=== PATIENT | male | born 1980 | race Hispanic/Latino ===

== ENCOUNTER 2022-10-15 05:09 | Emergency (ER) | payer OTHER ==
[~2022-10-15] VITALS: Ht 170.2 cm; Wt 86.2 kg
[2022-10-15 05:47] LABS: BASOPHILS % (AUTO) 0.8 % (0.0-5.0); EOSINOPHILS % (AUTO) 3.1 % (0.0-8.0); HEMATOCRIT 36.7 % (42-54); LYMPHOCYTES % (AUTO) 20.2 % (21.0-51.0); MEAN CORPUSCULAR HEMOGLOBIN 27.6 pg (27.0-33.0); MEAN CORPUSCULAR HGB CONC 32.7 g/dL (32.0-36.0); MEAN CORPUSCULAR VOLUME 84.6 fL (79-99); MONOCYTES % (AUTO) 9.3 % (3.0-13.0); NEUTROPHILS % (AUTO) 66.1 % (40.0-77.0); PLATELET COUNT (AUTO) 77 K/uL (130-400); RED BLOOD CELL COUNT(AUTO) 4.34 MIL/uL (4.50-6.20); RED CELL DISTRIBUTION WIDTH 21.2 % (11.0-15.5); WHITE BLOOD COUNT (AUTO) 3.9 K/uL (4.8-10.8)
[2022-10-15 05:54] LABS: INR 1.57 (0.85-1.15); PROTHROMBIN TIME 17.7 SEC (9.6-11.6)
[2022-10-15 05:55] LABS: PARTIAL THROMBOPLASTIN TIME 32.6 SEC (26.3-35.5)
[2022-10-15 06:03] LABS: ALBUMIN 2.2 g/dL (3.5-5.0); CREATININE 0.8 mg/dL (0.5-1.5); TOTAL PROTEIN, SERUM 7.1 g/dL (6.0-8.3)
[2022-10-15 06:14] LABS: POTASSIUM 2.9 mmol/L (3.5-5.1)
[2022-10-15 06:22] LABS: AMPHET/METH SCREEN,URINE NEGATIVE (NEGATIVE); BARBITURATE SCREEN, URINE NEGATIVE (NEGATIVE); BENZODIAZEPINES SCREEN,URINE NEGATIVE (NEGATIVE); CANNABINOID SCREEN,URINE NEGATIVE (NEGATIVE); COCAINE SCREEN,URINE NEGATIVE (NEGATIVE); OPIATE SCREEN,URINE NEGATIVE (NEGATIVE); PHENCYCLIDINE SCREEN,URINE NEGATIVE (NEGATIVE)
[2022-10-15] MEDS ORDERED: POTASSIUM BICARB/CIT AC 25 MEQ TABLET.EFF PO ONE ×2 (06:30→12:00)
[2022-10-15] MEDS ORDERED: METOCLOPRAMIDE 10 MG/2 ML VIAL IVP ONE (08:00)
[2022-10-15] MEDS ORDERED: MORPHINE 2 MG SYG IVP ONE (08:00)
[2022-10-15] MEDS ORDERED: NITROGLYCERIN 1GM OINT 1 INCH/1GM TD ONE (08:00)
[2022-10-15] MEDS ORDERED: LORAZEPAM 2 MG/ML 1 ML VIAL IVP ONE (08:00)
[2022-10-15] MEDS ORDERED: FAMOTIDINE 20MG VIAL IV ONE (08:00)
[2022-10-15 12:54] VITALS: BP 132/72
== END 2022-10-15 12:56 | disposition home or self-care (01) ==
LOC: EDH 05:09
DX: R07.89 Other chest pain (principal); F14.10 Cocaine abuse, uncomplicated; E87.6 Hypokalemia; E11.9 Type 2 diabetes mellitus without complications; I10 Essential (primary) hypertension; Z90.49 Acquired absence of other specified parts of digestive tract; Z88.6 Allergy status to analgesic agent
CPT/HCPCS: 99285; 96374; 96375; 71045; 84484; 80053; 80305; 82140; 85025; 85610; 85730; 36415; 93005; J3490; J2270; J2060; J2765